=== PATIENT | male | born 1955 | race Asian ===

== ENCOUNTER → 2016-07-16 | Outpatient (CLI) | payer BC ==
[~2016-07-16] MED LIST: ATEN25TA PO; BUSCOPAN PO; CPR500 PO; CYAN100T6 PO; IBUP-103 PO; LEVO-217 PO; LRT5 PO; METF1000 PO; MULTTAB58 PO; PHEN-674 PO
[2016-07-16 09:56] LABS: ESTIMATED AVERAGE GLUCOSE 143 mg/dl; HA1C FLAG Normal (Normal)
[2016-07-16 10:00] LABS: ALT/SGPT 42 U/L (12-78); AST/SGOT 36 U/L (15-37); BLOOD UREA NITROGEN 18 mg/dl (7-18); BUN/CREATININE RATIO 14.9 (10-20); CALCIUM 9.1 mg/dl (8.5-10.1); CARBON DIOXIDE 24 mmol/L (21-32); CHLORIDE 111 mmol/L (98-107); GLUCOSE 97 mg/dl (70-99); HDL CHOLESTEROL 33 mg/dl; POTASSIUM 4.4 mmol/L (3.5-5.1); SODIUM 141 mmol/L (136-145)
[2016-07-16 10:12] LABS: ALB/GLOB RATIO 1.5 (0.9-2); ALKALINE PHOSPHATASE 60 U/L (45-117); CHOLESTEROL 86 mg/dl (0-200); CHOLESTEROL/HDL RATIO 2.6; LDL CHOLESTEROL CALCULATED 25 mg/dl; TRIGLYCERIDES 138 mg/dl (0-150); VERY LOW DENSITY LIPOPROT CALC 28 mg/dl
== END | disposition home or self-care (01) ==
LOC: C.LAB1850 07:55
PROVIDERS: ATTEND Family Medicine
DX: E11.9 Type 2 diabetes mellitus without complications (principal)

== ENCOUNTER → 2016-12-07 | Outpatient (CLI) | payer BC ==
[2016-12-07 10:58] LABS: BLOOD UREA NITROGEN 20 mg/dl (7-18); BUN/CREATININE RATIO 16.3 (10-20); CALCIUM 9.7 mg/dl (8.5-10.1); CARBON DIOXIDE 22 mmol/L (21-32); CHLORIDE 109 mmol/L (98-107); GLUCOSE 83 mg/dl (70-99); POTASSIUM 4.1 mmol/L (3.5-5.1); SODIUM 140 mmol/L (136-145)
== END | disposition home or self-care (01) ==
LOC: C.LAB1850 09:34
PROVIDERS: ATTEND Nurse Practitioner Adult Health
DX: I10 Essential (primary) hypertension (principal); E11.9 Type 2 diabetes mellitus without complications

== ENCOUNTER → 2017-03-18 | Outpatient (CLI) | payer OTHER ==
--- NOTE | 2017-03-18 08:30 | DIAGNOSTIC IMAGING REPORT ---
SOFT TISS HEAD/NECK-THYROID HISTORY: Thyroid nodule E04.1 Solitary thyroid [id number] COMPARISON: None. FINDINGS: Right lobe: Maximum dimension 4.2 cm. Heterogeneous internal architecture. Several hypoechoic nodules none of which exceed 6 mm. Left lobe: Maximum dimension 2.4 cm. Several small hypoechoic and cystic nodules the largest of which measures 6 mm. Isthmus: No nodules. IMPRESSION: Multicystic multinodular thyroid. No evidence for a dominant nodule with all nodules less than 6 mm. Normal vascularity. 6-12 month follow-up is suggested. The above report was generated using voice recognition software. It may contain grammatical, syntax or spelling errors. Electronically signed by: Edwin Easton M.D. 03/18/2017 8:29 AM Dictated Date/Time: 03/18/2017 8:15 AM
== END | disposition home or self-care (01) ==
LOC: C.ULTR 07:36
PROVIDERS: ATTEND Internal Medicine Endocrinology, Diabetes & Metabolism
DX: E04.1 Nontoxic single thyroid nodule (principal)

== ENCOUNTER → 2017-05-03 | Outpatient (CLI) | payer OTHER ==
[2017-05-03 12:15] LABS: MEAN CORPUSCULAR HGB CONC 33.2 g/dl (32-36)
[2017-05-03 12:29] LABS: HEMOGLOBIN A1C 7.1 % (4.5-5.6)
[2017-05-03 12:46] LABS: HEMATOCRIT 34.3 % (42-52); HEMOGLOBIN 11.4 g/dL (14.0-18.0); MEAN CELL VOLUME 65.2 fL (80-100); MEAN CORPUSCULAR HEMOGLOBIN 21.7 pg (25-34); RED CELL DISTRIBUTION WIDTH CV 15.6 % (11.5-14.5); RED CELL DISTRIBUTION WIDTH SD 36.1 fL (36.4-46.3)
[2017-05-03 13:25] LABS: BASO % 0.2 %; BASO ABS # 0.01 K/uL (0-0.2); EOS % 4.7 %; EOS ABS # 0.22 K/uL (0-0.5); IG# 0.02 K/uL (0.00-0.02); LYMPH % 22.6 %; LYMPH ABS # 1.06 K/uL (1.2-3.4); MONO % 6.2 %; MONO ABS # 0.29 K/uL (0.11-0.59); NEUT % 65.9 %; PLATELET COUNT 113 K/uL (130-400)
== END | disposition home or self-care (01) ==
LOC: C.LAB1850 09:58
PROVIDERS: ATTEND Nurse Practitioner Adult Health
DX: D64.9 Anemia, unspecified (principal); E11.9 Type 2 diabetes mellitus without complications; E03.9 Hypothyroidism, unspecified; R80.9 Proteinuria, unspecified

== ENCOUNTER 2023-05-19 17:12 | Inpatient (IN) ==
[2023-05-19] MEDS ORDERED: Patient's HEIGHT &/or WEIGHT Needed SCH (17:16)
--- NOTE | 2023-05-19 17:17 | ED Triage Note ---
Date of Service May 19, 2023 Provider in Triage Author: Francine Do History of Present Illness This patient was briefly evaluated while in triage. An abbreviated physical exam was performed. This patient is a 67-year-old Male who presents to the ED for evaluation of right flank pain. Pt. was here yesterday and diagnosed with infected right ureteral stone. Pt. was started on antibiotics. States he passed the stone, but is now experiencing a sharp/shooting pain in the right pelvis. Pt. taking analgesics prescribed. Did have a fever this morning. States he took 1 dose of Cipro this morning. No pain/burning with urination. Does have appointment with Urology on Wednesday. Physical Exam VITALS: Vitals are noted on the nurse's note and reviewed by myself. GENERAL: This is a 67 year old 67, in no acute distress, nondiaphoretic, well- developed well-nourished. SKIN: No obvious rashes, edema, erythema HEAD: Normocephalic atraumatic. EYES: Conjunctivae without injection, sclerae without icterus. NECK: No JVD. LUNGS: No retractions or accessory muscle use. MUSCULOSKELETAL: Normal gait. NEURO: Patient was alert and oriented to person place and time. No focal neurological deficits. Initial orders for labs and / or imaging were placed and patient was placed in the waiting area until a bed is available. Please see further documentation for the full ED course.
[2023-05-19] MEDS: SODIUM CHLORIDE 0.9% 1,000 ML IV ONE ×2 (17:26→19:02)
[2023-05-19 18:03] LABS: Alanine Aminotransferase 23 U/L (7-52); Albumin Globulin Ratio 1.7 (0.9-2); Albumin Level 4.8 gm/dl (3.4-5.0); Alkaline Phosphatase 57 U/L (34-104); Anion Gap 12 (3-11); Aspartate Aminotransferase 30 U/L (13-39); BUN Creatinine Ratio 18.9 (10-20); Blood Urea Nitrogen 33 mg/dl (6-23); Calcium 9.9 mg/dl (8.6-10.3); Carbon Dioxide 19 mmol/L (21-32); Chloride 98 mmol/L (98-107); Est GFR (African American) 45.7 ml/min; Est GFR (Non-African American) 39.4 ml/min; Globulin 2.9 gm/dl (2.5-4.0); Glucose 296 mg/dl (70-99(Fasting)); Lipase 18 U/L (11-82); Potassium 4.6 mmol/L (3.5-5.1); Sodium 129 mmol/L (136-145); Total Protein 7.7 gm/dl (6.0-8.3)
[2023-05-19 18:13] LABS: Hematocrit (blood only) 36.9 % (42.0-52.0); Hemoglobin 12.2 g/dl (14.0-18.0); Mean Corpuscular Hemoglobin 22.7 pg (25.0-34.0); Mean Corpuscular Hgb Conc 33.1 g/dL (32.0-36.0); Mean Corpuscular Volume 68.7 fL (80.0-100.0); Platelet Count 75 K/uL (130-400); RDW Coefficient of Variation 15.7 % (11.5-14.5); RDW Standard Deviation 37.5 fL (36.4-46.3); Red Blood Count 5.37 M/uL (4.70-6.10); White Blood Count 9.55 K/ul (4.8-10.8)
[2023-05-19 18:14] LABS: Basophils # (auto) 0.01 K/uL (0.00-0.20); Basophils % (auto) 0.1 %; Immature Granulocytes # (auto) 0.03 K/uL (0.01-0.20); Immature Granulocytes % (auto) 0.3 %; Lymphocytes # (auto) 0.23 K/uL (1.20-3.40); Lymphocytes % (auto) 2.4 %; Microcytosis Present; Monocytes % (auto) 5.2 %; Neutrophils # (auto) 8.78 K/uL (1.40-6.50); Ovalocytes 1+; Polychromasia 1+; Tear Drop Cells 2+
[2023-05-19] MEDS: CEFEPIME 2,000 MG/20 ML VIAL IV STA (19:02)
[2023-05-19 19:37] LABS: Appearance Urine Clear (Clear); Bilirubin Urine Negative (Negative); Blood Urine Negative (Negative); Color Urine Yellow; Glucose Urine UA 3+ (Negative); Ketones Urine 1+ (Negative); Leukocyte Esterase Urine Negative (Negative); Nitrite Urine Negative (Negative); Protein Urine Negative (Negative); Specific Gravity Urine 1.027 (1.000-1.030); Urobilinogen Urine Negative (Negative)
--- NOTE | 2023-05-19 19:59 | XRay Report ---
XR KUB/Abdomen 1 view CLINICAL HISTORY: RLQ pain, recently passed stone TECHNIQUE: 1 view of the abdomen was obtained. Comparison: Comparison is made to abdomen radiographs and CT abdomen pelvis 05/18/2023 FINDINGS: Right renal stones are seen. Right ventricular system remains. The osseous structures are grossly unr emarkable. The bowel gas pattern is nonobstructive. A moderate amount of stool is noted within the la rge bowel. IMPRESSION: Redemonstration of right mid ureter stone. Nonobstructive stones in the right kidney again noted. ACT 112: Negative or not required by law. Electronically signed by: Charly Silverman M.D. 05/19/2023 7:58 PM
--- NOTE | 2023-05-19 20:48 | Urology Consultation ---
Date of Consultation May 19, 2023 Assessment & Plan (1) Calculus of proximal right ureter: I discussed with the treating clinician in the emergency department and the patient is being admitted on the hospitalist service. From a urologic perspective we recommend the following: Provide analgesics Provide antiemetics Follow serial labs Provide IV fluid for hydration The patient does take Flomax as an outpatient and this medication should continue Patient was taking Cipro as an outpatient but his antibiotics been escalated to cefepime intravenously which should continue. These antibiotics be tailored based on clinical response as well as pending culture data Implement n.p.o. status At the present time the patient is normotensive with only slight tachycardia (heart rate is in the 90s). The patient has been afebrile since arrival to the emergency department. He also does not have leukocytosis. He does have a slight elevation of his lactic acid level and this should be followed serially. As the patient does not appear toxic at this time and since he has had solid food approximate 1/2-hour ago we will not take the patient to the operating room urgently. If the patient does develop fevers or have signs or symptoms of worsening sepsis an emergent procedure may need to be required. Otherwise, we will plan on cystoscopy with possible right ureteral stent placement on 05/20/2023 Additional recommendations be forthcoming based on his clinical course as unfolds History of Present Illness Reason for Consultation: Nephrolithiasis History of Present Illness This is a 67-year-old male who presented to the emergency department secondary to a kidney stone. The patient was in the emergency department on 05/18/2023. During this visit the patient underwent a CT scan of the abdomen pelvis. This study identified the patient had a 3 mm obstructing kidney stone in the right proximal ureter causing hydronephrosis. Labs at this time include a CBC were white blood cell count was normal. His hemoglobin and hematocrit were 12.6 and 38.8. Platelet count was 99,000. Chemistry profile showed sodium was 135 with a normal potassium. His BUN was elevated at 26 and his creatinine was 1.2. Urinalysis at that time showed cloudy urine which was positive for nitrites. The patient also had 2+ leukocyte Estrace and pyuria with greater than 30 white blood cells per high-power field. There is 3+ bacteria on this study. The patient was offered admission to the hospital but he noted that he was feeling well and requested he be discharged home on oral antibiotics. The patient was discharged on Cipro which the patient says he has taken since discharge. The patient had a follow-up appoint with his PCP this morning where he was noted to be febrile with a temperature of 103. It was recommended that he report to the emergency department. The patient initially declined as he was feeling better after taking his morning antibiotic but he subsequently developed further fevers and ultimately presented to the emergency department. Today in the emergency department the patient did have a KUB that showed redemonstration of a right mid ureteral stone. Labs today included a CBC were white blood cell count is 9.5. Hemoglobin and hematocrit were 12.2 and 36.9. Platelet count is 75,000. Chemistry profile shows sodium is 129 with a normal potassium. His BUN and creatinine were 33 and 1.7. Lactic acid level was elevated at 3.7. Patient did have a urinalysis today that showed no evidence of infection at this time. I did question the patient on his symptoms and prior to his initial presentation to the emergency department last evening he was having 2 days of right flank pain radiating to the front of his abdomen. He had nausea without vomiting. He denies any dysuria but did report urinary frequency. He denies any hematuria and denies any incomplete bladder emptying. The patient does report that he has a history of kidney stones most recently in 2011 where he underwent a cystoscopy with stent placement. His most recent oral intake was approximately 8:00 PM on 05/19/2023 when he ate to [email or web address]. He is currently resting comfortably in bed he is in no distress. Allergies Allergy/AdvReac Type Severity Reaction Status Date / Time Sulfa (Sulfonamide Allergy Intermediate Hives Verified 05/19/23 20:32 Antibiotics) [facility] Allergy Mild Skin Verified 05/19/23 20:32 reaction pneumococcal vaccine Allergy fatigue, Verified 05/19/23 20:32 [From Prevelaine 13 (PF)] weakness Home Medications Medication Instructions Recorded Confirmed Type cholecalciferol (vitamin D3) 125 5,000 units PO QPM 03/30/19 05/19/23 History mcg (5,000 unit) capsule multivitamin 1 tab PO QAM 06/15/19 05/19/23 History metformin 500 mg tablet,extended 1,000 mg (2 x 500 mg) PO BID 90 12/04/22 05/19/23 Rx release 24 hr days #360 tabs FreeStyle Irma 14 Day Sensor #6 ea 03/10/23 05/19/23 Rx (flash glucose sensor) atenolol 25 mg tablet 25 mg PO QAM 03/23/23 05/19/23 History empagliflozin 10 mg tablet 10 mg PO QPM 03/23/23 05/19/23 History glipizide 5 mg tablet 2.5 mg PO QAM 03/23/23 05/19/23 History levothyroxine 75 mcg tablet 75 mcg PO QAM 03/23/23 05/19/23 History lisinopril 20 mg tablet 20 mg PO QPM 03/23/23 05/19/23 History ciprofloxacin HCl 500 mg tablet 500 mg PO BID 10 days #20 tabs 05/18/23 05/19/23 Rx (Cipro) ondansetron 4 mg disintegrating 4 mg PO Q6H PRN nausea and 05/18/23 05/19/23 Rx tablet vomiting #12 tabs oxycodone 5 mg tablet 5 mg PO Q6H PRN pain #10 tabs 05/18/23 05/19/23 Rx tamsulosin 0.4 mg capsule (Flomax) 0.4 mg PO DAILY #14 caps 05/18/23 05/19/23 Rx atorvastatin 10 mg tablet 5 mg PO QAM 05/19/23 05/19/23 History Patient History Medical History Right ureteral stone Diabetes mellitus, type 2 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 w/beta thalassemia [place] syndrome Ptosis, right eyelid Hypothyroidism Pancytopenia "low grade" Cardiac murmur mild Hypertension Surgical History History of esophagogastroduodenoscopy (EGD) Hx of blepharoplasty rt eye, age 6 for congential ptosis S/P hemorrhoidectomy 2022 History of colonoscopy (2019) History of herniorrhaphy rt inguinal History of tooth extraction Family History Father Family history of diabetes mellitus Prostate cancer Hypertension Mother Family history of diabetes mellitus Heart disease Denies family history of Colon cancer Ovarian cancer Myocardial infarction Breast cancer Social History Smoking Status: Never smoker Tobacco Type: Cigarettes Age Quit Using Tobacco: 35; Second Hand Exposure: No; Do You Dip or Chew Tobacco: No; Hx Alcohol Use: Yes Alcohol type: beer Alcohol Intake Frequency: 2-3 x/Week Hx Substance Use: No Preferred Language: Lao Communication Ability: Effective Visual Impairment: No Limitations Hearing Ability: Normal Car Dumper Required: No Beliefs That Will Affect Care: None marital status: Current Living Situation: Spouse current occupational status: employed 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 How many Children do You have: 2 Feels Safe at Home: Yes Childhood Exposure to Second-Hand Smoke: No Diet: diabetic caffeine: Yes during the past year weight has: remained stable Dental Care, Regularly: Yes Physical Activity Frequency: Daily Seatbelt Use: always Sunscreen Use: No Assistive Devices: None Review of Systems Constitutional: + fever; no chills Ear, Nose, Mouth, Throat: no hearing loss Respiratory: no cough and no dyspnea Cardiovascular: no chest pain Gastrointestinal: + abdominal pain (Radiating from right f lank); no vomiting Genitourinary: + as per Subjective / HPI Musculoskeletal: + back pain (Right flank) Integumentary: no rash Neurologic: no localized weakness Physical Exam Constitutional: WD/WN, vitals as above Eyes: no conjunctival abnormality ENMT: Ears: no hearing impairment and no external ear abnormality Mouth: no oropharynx abnormality Neck: trachea midline Respiratory: normal respiratory effort; no respiratory distress and no labored breathing Cardiovascular: Rate/Rhythm: regular rate and regular rhythm Gastrointestinal (Abdomen): Abdomen is soft and nondistended. It is nontender to palpation. There is no rebound tenderness or guarding. Musculoskeletal: No calf tenderness Skin: no rashes Neurologic: moves all extremities Psychiatric: A+Ox3, euthymic affect Genitourinary: Slight CVA tenderness with percussion on the right side Results & Data Vital Signs (Past 12 Hours) Vital Signs Temp Pulse Resp BP Pulse Ox O2 Del Method 05/19/23 17:16 36.8 C 94 H 20 153/86 H 97 Room Air PG Care Time/CCT Total # of Minutes Spent Total Time Spent with Patient: Total time spent is greater than 50% in coordination of care (as documented) at patient's floor/unit and/or counseling patient: Coding Level of Care Code 66843 INT INP/OBS CARE MIN Diagnoses Calculus of proximal right ureter N20.1
--- NOTE | 2023-05-19 20:57 | Ultrasound Report ---
Exam(s): US RENAL EXAM: US Retroperitoneal Limited, Renal CLINICAL HISTORY: Reason for exam: right pelvic pain, recent ureteral stone. TECHNIQUE: Real-time limited ultrasound of the retroperitoneum with image documentation. COMPARISON: No relevant prior studies available. FINDINGS: Right kidney: The right kidney measures 11.2 x 5.5 x 4.9 cm. The right renal pelvis measures 1.2 cm. No hydronephrosis. No stones. Left kidney: The left kidney measures 11.2 x 5.6 x 4.3 cm. No stones. No hydronephrosis. Bladder: The urinary bladder is partially distended and unremarkable. Soft tissues: The prostate gland measures 4 x 3.3 x 3.7 cm with heterogenous echotexture. Other findings: The spleen is enlarged measuring 15.1 cm. IMPRESSION: Slight prominence of the right renal pelvis without overt right hydronephrosis. No shadowing stones identified. Electronically signed by: Tino Santacruz MD 05/19/23 20:56 PM
[2023-05-19] MEDS ORDERED: GLUCOSE 10 TAB/TUBE PO PRN (21:03)
[2023-05-19] MEDS ORDERED: DEXTROSE 50% 50 ML SYRINGE IV PRN (21:03)
[2023-05-19] MEDS ORDERED: ACETAMINOPHEN 325 MG TAB PO PRN (21:03)
[2023-05-19] MEDS ORDERED: GLUCAGON FOR INJ 1 MG VIAL SQ PRN (21:03)
[2023-05-19] MEDS ORDERED: GLUCOSE 40% GEL 15 GM TUBE PO PRN (21:03)
[2023-05-19] MEDS ORDERED: CARBOHYDRATES FOR HYPOGLYCEMIA PO PRN (21:03)
[2023-05-19] MEDS ORDERED: VANCOMYCIN CONSULT ACTIVE PRN (21:12)
[2023-05-19] MEDS: ONDANSETRON INJ 2 MG/ML 2 ML VIAL IV PRN (21:15)
[2023-05-19] MEDS: HYDROmorphone INJ 0.5 MG/0.5 ML SYR IV PRN (21:15)
--- NOTE | 2023-05-19 21:29 | History & Physical Report ---
Date of Service May 19, 2023 Assessment & Plan (1) Urolithiasis: Plan: Assessment: 1. Urolithiasis with a 3 mm stone in the proximal ureter by CAT scan yesterday. With what appears to be evolving early hydronephrosis on ultrasound today. Patient failed outpatient oral antibiotic therapy. He represents today. He is getting 2-1/2 L of saline from the ER. Will order saline at 100 cc an hour. IV cefepime. IV vancomycin. Urological consultation. Again if patient spikes a fever urology would like to be notified per the ER provider. N.p.o. after midnight. Blood cultures were obtained. Urine cultures pending. 2. Early clinical sepsis with lactic acidemia and relative tachycardia. Blood cultures obtained. IV cefepime IV vancomycin. Presumed to be urinary source. 3. Acute kidney injury due to obstructive uropathy and dehydration. Hydrate aggressively and recheck. 4. Lactic acidemia hydrate and recheck. 5. Diabetes mellitus sliding scales been ordered as well as twice daily Lantus. Monitor carefully he is relatively hyperglycemic this evening. 6. History of pancytopenia and beta thalassemia. Following with outpatient physician. Due to the concern of possible cirrhosis on the CT scan close outpatient follow-up needs to be taken place with liver biopsy considered. 7. Question of cirrhosis by CAT scan. Again short-term outpatient follow-up with primary care is recommended for consideration of liver biopsy if not already completed I do not see where this has been addressed in the medical record this CAT scan was result was just from yesterday. 8. Hypothyroidism continue same home medications. 9. Dyslipidemia continue same medications. 10. Essential hypertension continue same home meds. Plan: As discussed above. Please refer to orders for further planning. History of Present Illness Chief Complaint: Right flank pain abdominal pain nausea. Right urolithiasis. Primary Care Provider: Bryant Muro, DO This is a pleasant 67-year-old male who came to the ER yesterday with the above complaints. He had a CAT scan that showed a proximal right ureter stone 3 mm. Was recommended to be admitted for urological evaluation. The patient declined and was discharged home on oral antibiotics. Patient followed up with his primary care physician today the patient was feeling worse with increased pain. He was directed back to the ER. At this point in the ER laboratory studies show acute kidney injury with a creatinine up to 1.75 with a lactic acidemia with a lactic acid of 3.7 renal ultrasound was performed in the ER today shows right- sided stone with what appears to be probable evolving early right-sided hydronephrosis. Blood cultures were obtained the patient received IV cefepime. Urology was consulted Dr. Whelan who plans on taking the patient to the OR tomorrow unless the patient spikes a fever overnight to become septic at which point he would like to be notified this was per the ER doctor's conversation with urology relayed to me. Other laboratory studies show mild anemia and thrombocytopenia which appears chronic the patient has a history of pancytopenia unknown etiology however the CAT scan yesterday does show a cirrhotic appearance of the liver. He will need to follow-up with us as an outpatient. Allergies Allergy/AdvReac Type Severity Reaction Status Date / Time Sulfa (Sulfonamide Allergy Intermediate Hives Verified 05/19/23 20:32 Antibiotics) [facility] Allergy Mild Skin Verified 05/19/23 20:32 reaction pneumococcal vaccine Allergy fatigue, Verified 05/19/23 20:32 [From Prevnar 13 (PF)] weakness Home Medications Medication Instructions Recorded Confirmed Type cholecalciferol (vitamin D3) 125 5,000 units PO QPM 03/30/19 05/19/23 History mcg (5,000 unit) capsule multivitamin 1 tab PO QAM 06/15/19 05/19/23 History metformin 500 mg tablet,extended 1,000 mg (2 x 500 mg) PO BID 90 12/04/22 05/19/23 Rx release 24 hr days #360 tabs FreeStyle Irma 14 Day Sensor #6 ea 03/10/23 05/19/23 Rx (flash glucose sensor) atenolol 25 mg tablet 25 mg PO QAM 03/23/23 05/19/23 History empagliflozin 10 mg tablet 10 mg PO QPM 03/23/23 05/19/23 History glipizide 5 mg tablet 2.5 mg PO QAM 03/23/23 05/19/23 History levothyroxine 75 mcg tablet 75 mcg PO QAM 03/23/23 05/19/23 History lisinopril 20 mg tablet 20 mg PO QPM 03/23/23 05/19/23 History ciprofloxacin HCl 500 mg tablet 500 mg PO BID 10 days #20 tabs 05/18/23 05/19/23 Rx (Cipro) ondansetron 4 mg disintegrating 4 mg PO Q6H PRN nausea and 05/18/23 05/19/23 Rx tablet vomiting #12 tabs oxycodone 5 mg tablet 5 mg PO Q6H PRN pain #10 tabs 05/18/23 05/19/23 Rx tamsulosin 0.4 mg capsule (Flomax) 0.4 mg PO DAILY #14 caps 05/18/23 05/19/23 Rx atorvastatin 10 mg tablet 5 mg PO QAM 05/19/23 05/19/23 History Past Med/Surg History Medical History Right ureteral stone Diabetes mellitus, type 2 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 w/beta thalassemia [place] syndrome Ptosis, right eyelid Hypothyroidism Pancytopenia "low grade" Cardiac murmur mild Hypertension Surgical History History of esophagogastroduodenoscopy (EGD) Hx of blepharoplasty rt eye, age 6 for congential ptosis S/P hemorrhoidectomy 2022 History of colonoscopy (2019) History of herniorrhaphy rt inguinal History of tooth extraction Family History Father Family history of diabetes mellitus Prostate cancer Hypertension Mother Family history of diabetes mellitus Heart disease Denies family history of Colon cancer Ovarian cancer Myocardial infarction Breast cancer Social History Smoking Status: Never smoker Tobacco Type: Cigarettes Age Quit Using Tobacco: 35; Second Hand Exposure: No; Do You Dip or Chew Tobacco: No; Hx Alcohol Use: Yes Alcohol type: beer Alcohol Intake Frequency: 2-3 x/Week Hx Substance Use: No Preferred Language: Italian Communication Ability: Effective Visual Impairment: No Limitations Hearing Ability: Normal Outpatient Services Director Required: No Beliefs That Will Affect Care: None marital status: Current Living Situation: Spouse current occupational status: employed 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 Physical Exam Physical Exam: In General: In general this is a pleasant 67-year-old male who is alert and oriented x 3 at time my examination. 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 He does admit the pain. HEENT: Normocephalic atraumatic pupils are equal round and reactive to light bilaterally. No scleral icterus no conjunctival injection external auditory canals are patent septum is in the midline nose is without discharge oral mucosa is pink and moist without lesion. NECK: Supple no rigidity no lymphadenopathy no thyromegaly no carotid bruits no JVD no masses. HEART: Regular rate and rhythm I do not appreciate any ectopy or rub. No murmur. LUNGS: Clear to auscultation bilaterally and anteriorly with no evidence of adventitious sounds/wheezes rales or rhonchi. ABDOMEN: Soft nontender, no rebound, no peritoneal signs, positive bowel sounds, no appreciable organomegaly. He does have significant right-sided flank pain. EXTREMITIES: Intact, no peripheral cyanosis, clubbing or edema. Strength is 5 out of 5 in extremities x4, no pathological reflexes. NEUROLOGICAL: Cranial nerves II through XII are grossly intact with no focal deficit elicited upon examination. No tremor. Results & Data Results & Data Vital Signs (Past 12 Hours) Vital Signs Temp Pulse Pulse Resp BP BP Pulse Ox 05/19/23 20:45 98 05/19/23 20:45 92 H 23 132/82 97 05/19/23 17:16 36.8 C 94 H 20 153/86 H 97 O2 Del Method 05/19/23 20:45 Room Air 05/19/23 20:45 Room Air 05/19/23 17:16 Room Air Code Status & VTE Plan Code Status Full code. I did personally speak with the patient today. VTE Prophylaxis Plan VTE Prophylaxis will be ordered: Yes PG Care Time/CCT Total # of Minutes Spent Total Time Spent with Patient: Total time spent is greater than 50% in coordination of care (as documented) at patient's floor/unit and/or counseling patient: Coding Level of Care Code 05449 INT INP/OBS CARE MIN Diagnoses Urolithiasis N20.9
[2023-05-19] MEDS: VANCOMYCIN HCL 1,500 MG in SODIUM CHLORIDE 0.9% 500 ML IV ONE (21:39)
[2023-05-19] MEDS: LANTUS PER UNIT CHARGE SQ SCH (21:53)
[2023-05-19] MEDS: oxyCODONE HCL IR 5 MG TAB (IMMEDIATE RELEASE) PO PRN (22:53)
[2023-05-19] MEDS: SODIUM CHLORIDE 0.9% 500 ML IV ONE (22:55)
[2023-05-19] MEDS: ONDANSETRON INJ 2 MG/ML 2 ML VIAL IV STA (23:19)
[2023-05-19] MEDS: SODIUM CHLORIDE 0.9% 1,000 ML IV SCH (23:30)
[2023-05-19] MEDS: INSULIN ASPART PER UNIT CHARGE SC SCH (23:44)
[2023-05-19] MEDS: CHOLECALCIFEROL 125 MCG (5,000 UNITS) TAB PO SCH (23:52)
--- NOTE | 2023-05-20 00:15 | Emergency Department Note ---
History of Present Illness General Chief Complaint: Abdominal Pain Stated Complaint: R SIDE PAIN , HERE YESTERDAY, KIDNEY STONES Time Seen by Provider: 05/19/23 18:52 History of Present Illness Provider Complaint: flank pain (R) Onset (ago): 4 day(s) Pain Consistency: intermittent Location: R flank Radiation: RLQ Severity: mild Maximum Pain Intensity: 3 Current Pain Intensity: 3 Quality: + stabbing and + sharp Relieved By: + nothing Exacerbated By: + nothing Context: + recent antibiotic use (Started on Cipro yesterday for UTI) and + history of similar episodes (Diagnosed with kidney stones yesterday); no foreign travel, no possible food poisoning, no sick contacts, no recent surgery/procedure or no recent injury Associated Symptoms: + fever; no nausea, no vomiting, no chills, no dysuria, no hematemesis, no melena, no hematuria and no breathing difficulty Home Medications Medication Instructions Recorded Confirmed Type cholecalciferol (vitamin D3) 125 5,000 units PO QPM 03/30/19 05/19/23 History mcg (5,000 unit) capsule multivitamin 1 tab PO QAM 06/15/19 05/19/23 History metformin 500 mg tablet,extended 1,000 mg (2 x 500 mg) PO BID 90 12/04/22 05/19/23 Rx release 24 hr days #360 tabs FreeStyle Irma 14 Day Sensor #6 ea 03/10/23 05/19/23 Rx (flash glucose sensor) atenolol 25 mg tablet 25 mg PO QAM 03/23/23 05/19/23 History empagliflozin 10 mg tablet 10 mg PO QPM 03/23/23 05/19/23 History glipizide 5 mg tablet 2.5 mg PO QAM 03/23/23 05/19/23 History levothyroxine 75 mcg tablet 75 mcg PO QAM 03/23/23 05/19/23 History lisinopril 20 mg tablet 20 mg PO QPM 03/23/23 05/19/23 History ciprofloxacin HCl 500 mg tablet 500 mg PO BID 10 days #20 tabs 05/18/23 05/19/23 Rx (Cipro) ondansetron 4 mg disintegrating 4 mg PO Q6H PRN nausea and 05/18/23 05/19/23 Rx tablet vomiting #12 tabs oxycodone 5 mg tablet 5 mg PO Q6H PRN pain #10 tabs 05/18/23 05/19/23 Rx tamsulosin 0.4 mg capsule (Flomax) 0.4 mg PO DAILY #14 caps 05/18/23 05/19/23 Rx atorvastatin 10 mg tablet 5 mg PO QAM 05/19/23 05/19/23 History Allergies Allergy/AdvReac Type Severity Reaction Status Date / Time Sulfa (Sulfonamide Allergy Intermediate Hives Verified 05/19/23 20:32 Antibiotics) dulaglutide [From Trulicity] Allergy Mild Skin Verified 05/19/23 20:32 reaction pneumococcal vaccine Allergy fatigue, Verified 05/19/23 20:32 [From Prevnar 13 (PF)] weakness Past Med/Surg History Medical History Right ureteral stone Diabetes mellitus, type 2 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 w/beta thalassemia [place] syndrome Ptosis, right eyelid Hypothyroidism Pancytopenia "low grade" Cardiac murmur mild Hypertension Surgical History History of esophagogastroduodenoscopy (EGD) Hx of blepharoplasty rt eye, age 6 for congential ptosis S/P hemorrhoidectomy 2022 History of colonoscopy (2019) History of herniorrhaphy rt inguinal History of tooth extraction Family History Father Family history of diabetes mellitus Prostate cancer Hypertension Mother Family history of diabetes mellitus Heart disease Denies family history of Colon cancer Ovarian cancer Myocardial infarction Breast cancer Social History Smoking Status: Former smoker Tobacco Type: Cigarettes Age Quit Using Tobacco: 35; Second Hand Exposure: No; Do You Dip or Chew Tobacco: No; Hx Alcohol Use: No Hx Substance Use: No Preferred Language: Slovenian Communication Ability: Effective Visual Impairment: No Limitations Hearing Ability: Normal Senior Hardware Engineer Required: No Beliefs That Will Affect Care: None marital status: Current Living Situation: Spouse current occupational status: employed 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 How many Children do You have: 2 Feels Safe at Home: Yes Childhood Exposure to Second-Hand Smoke: No Diet: diabetic caffeine: Yes during the past year weight has: remained stable Dental Care, Regularly: Yes Physical Activity Frequency: Daily Seatbelt Use: always Sunscreen Use: No Assistive Devices: Glasses Physical Exam 2 Vital Signs: Vital Signs - 24 hr 05/19/23 17:16 05/19/23 20:45 05/19/23 20:45 Temperature 36.8 C Temperature Source Temporal Artery Sc an Pulse Rate 94 H Pulse Rate [Apical ] 92 H Respiratory Rate 20 23 Respiratory Effort / Characteristics Non-Labored Sponta neous Respiratory Depth Normal Respiratory Patter n Regular Blood Pressure 153/86 H Blood Pressure [Ri ght Arm] 132/82 Blood Pressure Sandra n 108 Blood Pressure Sandra n [Right Arm] 98 Pulse Oximetry 97 97 98 Oxygen Delivery Me thod Room Air Room Air Room Air Sepsis Recent Feve r Within 48 Hours Yes Sepsis New/Unexpla ined Change in Men leanne Status No Sepsis Action Take n by Nursing No Action Required Physical Exam: Physical Exam GENERAL: She is oriented to person, place, and time. She appears well-developed and well-nourished. She does not appear distressed. HENT: Exam performed. -Head: Normocephalic and atraumatic. -Right Ear: External ear normal. No mastoid erythema -Left Ear: External ear normal. No mastoid erythema -Mouth/Throat: The oropharynx is clear and moist. No trismus in the jaw. No dental abscesses or uvula swelling. No oropharyngeal exudate or tonsillar abscesses. EYES: Conjunctivae and EOM are normal.Right eye exhibits no discharge. Left eye exhibits no discharge. No scleral icterus. NECK: Normal range of motion. Neck supple. No JVD present. No tracheal deviation and normal range of motion present. CV: Normal rate, regular rhythm, normal heart sounds and intact distal pulses. There is no peripheral edema. Palpable radial pulses bue. PULM/CHEST: Effort normal and breath sounds normal. No respiratory distress. No stridor. She has no wheezes. She has no rales. -Chest Wall: She exhibits no tenderness. ABD: The abdomen is soft. Bowel sounds are normal. She has no distension. No mass is present. There is no tenderness. There is no rebound, no guarding, no Greene's sign and no tenderness at McBurney's point. Rovsig negative MUSC/SKEL: Normal range of motion. There is no peripheral edema, tenderness or deformity. NEURO: Motor and sensation grossly intact. SKIN: Skin is warm and dry. She is not diaphoretic. PSYCH: She has a normal mood and affect. Behavior is normal. Judgment and thought content normal. Course Course 1851: The patient was evaluated in room B6. A complete history and physical exam was performed Cardiac monitoring: An order was placed for continuous cardiac monitoring. The monitor shows a rate of 90 with sinus rhythm interpreted by me 1940: Vital signs stable. Labs show lactic acid of 3.7. Creatinine 1.75 up from 1.29 yesterday. Sodium of 129. 30 cc/kg normal saline bolus administered in the emergency department as well as broad-spectrum antibiotics cefepime. Discussed with Dr. Whelan on-call neurology and he states that keep the patient n.p.o. if the patient develops a fever overnight to call him in and they could emergently remove the stone otherwise he will plan on doing it in the morning. Dr. Whelan recommends admitting the patient to medicine. Administered Medications Hydromorphone HCl (Hydromorphone Inj 0.5 Mg/0.5 Ml Syr) 0.5 mg IV Q3H PRN PRN Reason: Pain Scale 4,5,6 Stop: 06/02/23 21:01 Last Admin: 05/19/23 21:15 Dose: 0.5 mg Documented By: LUIS Sodium Chloride (Nss) 1,000 mls @ 100 mls/hr IV .Q10H [facility] Stop: 06/18/23 21:14 Last Admin: 05/19/23 23:30 Dose: 100 mls/hr Documented By: NALLELY Insulin Aspart (Insulin Aspart Per Unit Charge) 0 units SC Q6 LAZARO Stop: 06/19/23 00:00 Last Admin: 05/19/23 23:44 Dose: 1 units Documented By: NALLELY Co-signed By: CARIDAD Insulin Glargine (Lantus Per Unit Charge) 7 units SQ BID [facility] Stop: 06/18/23 21:14 Last Admin: 05/19/23 21:53 Dose: 7 units Documented By: LUIS Co-signed By: ALEXANDER Ondansetron HCl (Ondansetron Inj 2 Mg/Ml 2 Ml Vial) 4 mg IV Q6H PRN PRN Reason: Nausea Stop: 06/18/23 21:01 Last Admin: 05/19/23 21:15 Dose: 4 mg Documented By: LUIS Oxycodone HCl (Oxycodone Hcl Ir 5 Mg Tab (Immediate Release)) 5 mg PO Q6H PRN PRN Reason: pain Stop: 06/02/23 22:31 Last Admin: 05/19/23 22:53 Dose: 5 mg Documented By: NALLELY Vitamin D (Cholecalciferol 125 Mcg (5,000 Units) Tab) 125 mcg PO QPM LAZARO Stop: 06/18/23 22:31 Last Admin: 05/19/23 23:52 Dose: Not Given Documented By: NALLELY Discontinued Medications Sodium Chloride (Nss) 1,000 mls @ 999 mls/hr IV .Q1H1M ONE Stop: 05/19/23 18:18 Last Infusion: 05/19/23 22:22 Dose: Infused Documented By: Admin: 05/19/23 17:26 Dose: 999 mls/hr Documented By: TUAN Sodium Chloride (Nss) 1,000 mls @ 999 mls/hr IV .Q1H1M ONE Stop: 05/19/23 18:45 Last Infusion: 05/19/23 21:04 Dose: Infused Documented By: Admin: 05/19/23 19:02 Dose: 999 mls/hr Documented By: LUIS Cefepime HCl (Maxipime) 2,000 mg in 20 mls @ 5 mls/min IV NOW STA; Protocol Stop: 05/19/23 18:20 Last Admin: 05/19/23 19:02 Dose: 5 mls/min Documented By: LUIS Sodium Chloride (Nss) 500 mls @ 999 mls/hr IV .Q31M ONE Stop: 05/19/23 21:19 Last Infusion: 05/19/23 23:26 Dose: Infused Documented By: Admin: 05/19/23 22:55 Dose: 999 mls/hr Documented By: NALLELY Vancomycin HCl 1,500 mg/ (Sodium Chloride) 530 mls @ 200 mls/hr IV NOW ONE Stop: 05/20/23 00:08 Last Admin: 05/19/23 21:39 Dose: 200 mls/hr Documented By: LUIS Ondansetron HCl (Ondansetron Inj 2 Mg/Ml 2 Ml Vial) 4 mg IV NOW STA Stop: 05/19/23 20:48 Last Admin: 05/19/23 23:19 Dose: Not Given Documented By: NALLELY Medical Decision Making Medical Records Attestation: I reviewed the patient's medical records. External medical records reviewed. Patient was seen in the emergency department last night and diagnosed with a kidney stone and UTI. Patient did have fevers overnight last night was recommended to come into the emergency department but declined. Patient had a CT of the abdomen pelvis done yesterday which showed a 3 mm obstructing calculus in the right proximal ureter and mild right hydroureteronephrosis. Laboratory Data Attestation: I reviewed the patient's lab results. 05/19/23 17:15 05/19/23 17:15 Lab Results 05/19/23 Range/Units 17:15 WBC 9.55 (4.8-10.8) K/ul RBC 5.37 (4.70-6.10) M/uL Hgb 12.2 L (14.0-18.0) g/dl Hct 36.9 L (42.0-52.0) % MCV 68.7 L (80.0-100.0) fL MCH 22.7 L (25.0-34.0) pg MCHC 33.1 (32.0-36.0) g/dL RDW Std Deviation 37.5 (36.4-46.3) fL RDW Coeff of Srinivas 15.7 H (11.5-14.5) % Plt Count 75 L (130-400) K/uL Immature Gran % (Auto) 0.3 % Neut % (Auto) 92.0 % Lymph % (Auto) 2.4 % Terry % (Auto) 5.2 % Eos % (Auto) 0.0 % Baso % (Auto) 0.1 % Neut # (Auto) 8.78 H (1.40-6.50) K/uL Lymph # (Auto) 0.23 L (1.20-3.40) K/uL Terry # (Auto) 0.50 (0.11-0.59) K/uL Eos # (Auto) 0.00 (0.00-0.50) K/uL Baso # (Auto) 0.01 (0.00-0.20) K/uL Immature Gran # (Auto) 0.03 (0.01-0.20) K/uL Polychromasia 1+ Microcytosis Present Tear Drop Cells 2+ Ovalocytes 1+ Sodium 129 L (136-145) mmol/L Potassium 4.6 (3.5-5.1) mmol/L Chloride 98 (98-107) mmol/L Carbon Dioxide 19 L (21-32) mmol/L Anion Gap 12 H (3-11) BUN 33 H (6-23) mg/dl Creatinine 1.75 H D (0.6-1.4) mg/dl Est Cr Clr Drug Dosing Not Reportable Est GFR ( Amer) 45.7 ml/min Est GFR (Non-Af Amer) 39.4 ml/min BUN/Creatinine Ratio 18.9 (10-20) Glucose 296 H (70-99(Fasting)) mg/dl Lactate 3.7 H* (0.4-2.0) mmol/L Calcium 9.9 (8.6-10.3) mg/dl Total Bilirubin 2.0 H (0.2-1.0) mg/dl AST 30 (13-39) U/L ALT 23 (7-52) U/L Alkaline Phosphatase 57 (34-104) U/L Total Protein 7.7 (6.0-8.3) gm/dl Albumin 4.8 (3.4-5.0) gm/dl Globulin 2.9 (2.5-4.0) gm/dl Albumin/Globulin Ratio 1.7 (0.9-2) Lipase 18 (11-82) U/L Imaging Data Radiologist's Impression: KUB X-Ray 05/19/23 17:17 XR KUB/Abdomen 1 view CLINICAL HISTORY: RLQ pain, recently passed stone TECHNIQUE: 1 view of the abdomen was obtained. Comparison: Comparison is made to abdomen radiographs and CT abdomen pelvis 05/18/2023 FINDINGS: Right renal stones are seen. Right ventricular system remains. The osseous structures are grossly unremarkable. The bowel gas pattern is nonobstructive. A moderate amount of stool is noted within the large bowel. IMPRESSION: Redemonstration of right mid ureter stone. Nonobstructive stones in the right kidney again noted. ACT 112: Negative or not required by law. Electronically signed by: Charly Silverman M.D. 05/19/2023 7:58 PM Renal Ultrasound 05/19/23 17:20 Exam(s): US RENAL EXAM: US Retroperitoneal Limited, Renal CLINICAL HISTORY: Reason for exam: right pelvic pain, recent ureteral stone. TECHNIQUE: Real-time limited ultrasound of the retroperitoneum with image documentation. COMPARISON: No relevant prior studies available. FINDINGS: Right kidney: The right kidney measures 11.2 x 5.5 x 4.9 cm. The right renal pelvis measures 1.2 cm. No hydronephrosis. No stones. Left kidney: The left kidney measures 11.2 x 5.6 x 4.3 cm. No stones. No hydronephrosis. Bladder: The urinary bladder is partially distended and unremarkable. Soft tissues: The prostate gland measures 4 x 3.3 x 3.7 cm with heterogenous echotexture. Other findings: The spleen is enlarged measuring 15.1 cm. IMPRESSION: Slight prominence of the right renal pelvis without overt right hydronephrosis. No shadowing stones identified. Electronically signed by: Tino Santacruz MD 05/19/23 20:56 PM [facility] Narrative 1852: The patient was evaluated in room B6. A complete history and physical exam was performed Cardiac monitoring: An order was placed for continuous cardiac monitoring. The monitor shows a rate of 90 with sinus rhythm interpreted by me 1940: Vital signs stable. Labs show lactic acid of 3.7. Creatinine 1.75 up from 1.29 yesterday. Sodium of 129. 30 cc/kg normal saline bolus administered in the emergency department as well as broad-spectrum antibiotics cefepime. Discussed with Dr. Whelan on-call neurology and he states that keep the patient n.p.o. if the patient develops a fever overnight to call him in and they could emergently remove the stone otherwise he will plan on doing it in the morning. Dr. Whelan recommends admitting the patient to medicine. Impression & Plan Sepsis, Nephrolithiasis Critical Care Time Critical Care Time: Yes Total Critical Care Time: 41 I have personally spent greater than 41 minutes of critical care time in the direct management of this patient. This includes bedside care, interpretation of diagnostic studies, and testing, discussion with consultants, patient, and family members, and other required patient management activities. This 41 minutes is in excess of all separately billable procedures. Discharge Plan Visit Data Chief Complaint: Abdominal Pain Stated Complaint: R SIDE PAIN , HERE YESTERDAY, KIDNEY STONES ED Provider: Agapito Bermudez Discharge Problem: Sepsis, Nephrolithiasis Patient Disposition: Admitted As Inpatient Discharge Instructions Interventions: ED Discharge Assessment Last Done: 05/19/23 22:36 Discharge Problem: Sepsis Qualifiers: Sepsis type: sepsis due to unspecified organism Sepsis acute organ dysfunction status: with acute organ dysfunction Severe sepsis acute organ dysfunction type: acute renal failure Acute renal failure type: unspecified Severe sepsis shock status: without septic shock Qualified Code(s): A41.9 - Sepsis, unspecified organism; R65.20 - Severe sepsis without septic shock; N17.9 - Acute kidney failure, unspecified
[2023-05-20] MEDS: MoRPHine SULFATE 2 MG/ML CARP IV STA (01:05)
[2023-05-20] MEDS: SODIUM CHLORIDE 0.9% 1,000 ML IV STA (01:07)
[2023-05-20] MEDS: CEFEPIME 2,000 MG in SYRINGE 0 ML IV SCH (06:21)
[2023-05-20] MEDS: LEVOTHYROXINE SODIUM 75 MCG TABLET PO SCH (06:21)
--- NOTE | 2023-05-20 07:25 | Urology Progress Note ---
Date of Service May 20, 2023 Assessment & Plan (1) Urolithiasis: (2) Sepsis: (3) Right flank pain: Plan Since he has not passed the stone and there are signs of possible infection, we discussed the plan for cystoscopy, right retrograde pyelogram and right ureteral stent placement. We reviewed risks and benefits of the surgery including bleeding, infection, injury to urinary tract, need for additional procedures, inability to place stent. He expressed understanding and would like to proceed with right ureteral stent placement Admission and Anticipated Discharge Date Admission Date: May 19, 2023 Subjective Feeling okay this morning, has not passed the stone yet Denies overt fevers or chills Review of Systems Review of Systems: 12 point review of systems negative exce pt for otherwise indicated. Physical Exam Physical Exam: Well-appearing, NAD Results & Data Vital Signs (Past 12 Hours) Vital Signs Temp Pulse Pulse Resp BP Pulse Ox O2 Del Method 05/20/23 03:00 37.5 C 103 H 18 99/68 L 92 Room Air 05/19/23 22:42 36.6 C 98 H 16 135/82 99 Room Air 05/19/23 22:35 97 H 05/19/23 20:45 98 Room Air 05/19/23 20:45 92 H 23 132/82 97 Room Air PG Care Time/CCT Total # of Minutes Spent Total Time Spent with Patient: Total time spent is greater than 50% in coordination of care (as documented) at patient's floor/unit and/or counseling patient: Coding Level of Care Code 74442 SUB INP/OBS CARE 03/25MIN Diagnoses Urolithiasis N20.9 Sepsis A41.9; R65.20; N17.9 Acute renal failure type: unspecified Sepsis acute organ dysfunction status: with acute organ dysfunction Sepsis type: sepsis due to unspecified organism Severe sepsis acute organ dysfunction type: acute renal failure Severe sepsis shock status: without septic shock Right flank pain R10.9 (2) Sepsis Acute renal failure type: unspecified Sepsis acute organ dysfunction status: with acute organ dysfunction Sepsis type: sepsis due to unspecified organism Severe sepsis acute organ dysfunction type: acute renal failure Severe sepsis shock status: without septic shock Qualified Code(s): A41.9 - Sepsis, unspecified organism; R65.20 - Severe sepsis without septic shock; N17.9 - Acute kidney failure, unspecified
--- NOTE | 2023-05-20 07:56 | Hospitalist Progress Note ---
Date of Service May 20, 2023 Assessment & Plan (1) Sepsis due to gram-negative UTI: Plan: 67 y/o with right ureteral kidney stone diagnosed 05/17, had been taking cipro as outpatient but developed fever to 103. Admitted with sepsis due to UTI, KARYN, 3 mm right obstructing ureteral stone with mild hydronephrosis Sepsis due to E. coli UTI with obstructing R ureteral nephrolithiasis present on admission with target organ damage of acute kidney injury Febrile and tachycardic overnight, improved. UA was negative however was on po cipro prior to admission -continue IV fluids for sepsis and KARYN -narrow antibiotics to ceftriaxone based on recent urine culture (2) Urolithiasis: Plan: Urolithiasis with a 3 mm stone in the proximal ureter by CT scan and early obstructing hydronephrosis -cystoscopy with stent placement 05/[address] Nevarez -follow up with urologist for definitive stone treatment after infection is controlled -continue flomax for BPH and nephrolithiasis -sepsis improved, tachycardia improved Tm overnight 39.5 -labsP -continue cefepime and vancomycin pending cultures -urology consulted -planned for cystoscopy with stenting today by Dr. Nevarez 1. yesterday. With what appears to be evolving early hydronephrosis on ultrasound today. Patient failed outpatient oral antibiotic therapy. He represents today. He is getting 2-1/2 L of saline from the ER. Will order saline at 100 cc an hour. IV cefepime. IV vancomycin. Urological consultation. Again if patient spikes a fever urology would like to be notified per the ER provider. N.p.o. after midnight. Blood cultures were obtained. Urine cultures pending. 2. Early clinical sepsis with lactic acidemia and relative tachycardia. Blood cultures obtained. IV cefepime IV vancomycin. Presumed to be urinary source. 3. Acute kidney injury due to obstructive uropathy and dehydration. Hydrate aggressively and recheck. 4. Lactic acidemia hydrate and recheck. 5. Diabetes mellitus sliding scales been ordered as well as twice daily Lantus. Monitor carefully he is relatively hyperglycemic this evening. 6. History of pancytopenia and beta thalassemia. Following with outpatient physician. Due to the concern of possible cirrhosis on the CT scan close outpatient follow-up needs to be taken place with liver biopsy considered. 7. Question of cirrhosis by CAT scan. Again short-term outpatient follow-up with primary care is recommended for consideration of liver biopsy if not already completed I do not see where this has been addressed in the medical record this CAT scan was result was just from yesterday. 8. Hypothyroidism continue same home medications. 9. Dyslipidemia continue same medications. 10. Essential hypertension continue same home meds. Plan: As discussed above. Please refer to orders for further planning. (3) KARYN (acute kidney injury): Plan: Due to sepsis and obstructing stone with hydronephrosis Baseline CKD stage 3 with Cr 1.3 -Cr increased from 1.75 to 1.99 -continue IV NS -good UOP -hold LLOYD -AM BMP (4) Pancytopenia: Plan: Chronic, related to splenomegaly, cirrhosis, beta thalassemia -monitor CBC context of sepsis -thrombocytopenia worse than baseline related to infection (5) BPH with obstruction/lower urinary tract symptoms: Plan: cont flomax (6) Type 2 diabetes mellitus: Plan: Empaglifozin, glipizide, metformin held Cont glargine 7 bid and premeal/correctional -adequate control today (7) Hypertension: Plan: Continue atenolol, lisinopril held for KARYN Continue atorvastatin (8) Cirrhosis: Plan: CMP and imaging consistent with cirrhosis He states he's aware of this and has had negative HBV and HCV screening in the past -monitor CMP -bilirubin improved overnight to nearer 2022 baseline of 1.3, 1.5 -INR 1.2 -outpatient follow up for this Admission and Anticipated Discharge Date Admission Date: May 19, 2023 Subjective feels MUCH better, denies flank or abdominal pain or dysuria Physical Exam 2 Physical Exam: PHYSICAL EXAMINATION Last 24h vital signs reviewed, see documentation in flowsheet General: comfortable appearing, no distress, very pleasant gentleman HEENT: Normocephalic, atraumatic, pupils round and equal, sclerae anicteric, no conjunctival injection, moist mucus membranes Lungs: Normal respiratory effort. Clear to auscultation bilaterally. No RRW Heart: Regular rate and rhythm, no murmurs. No JVD Abdomen: Soft, nontender, nondistended. Bowel sounds present. Extremities: Warm, dry, well-perfused. No extremity edema. Neuro: Alert and oriented x 4, face symmetric, moves 4 extremities well Psych: Normal affect and behavior Results & Data Results & Data Vital Signs (Past 12 Hours) Vital Signs Temp Pulse Pulse Resp BP Pulse Ox O2 Del Method 05/20/23 07:00 36.8 C 84 16 111/67 95 Room Air 05/20/23 03:00 37.5 C 103 H 18 99/68 L 92 Room Air 05/19/23 22:42 36.6 C 98 H 16 135/82 99 Room Air 05/19/23 22:35 97 H 05/19/23 20:45 98 Room Air 05/19/23 20:45 92 H 23 132/82 97 Room Air Laboratory Results 05/20/23 07:02 05/20/23 07:02 PG Care Time/CCT Total # of Minutes Spent Total Time Spent with Patient: Total time spent is greater than 50% in coordination of care (as documented) at patient's floor/unit and/or counseling patient: Coding Level of Care Code 69856 SUB INP/OBS CARE 3/50MIN Diagnoses Sepsis due to gram-negative UTI A41.50; N39.0 Urolithiasis N20.9 KARYN (acute kidney injury) N17.9 Pancytopenia D61.818 BPH with obstruction/lower urinary tract symptoms N40.1; N13.8 Type 2 diabetes mellitus E11.9 Hypertension I10 Cirrhosis K74.60
[2023-05-20 07:59] LABS: Estimated Average Glucose 163 mg/dl; Hemoglobin A1C 7.3 % (4.5-5.6)
[2023-05-20 08:07] LABS: INR 1.2 (0.9-1.1)
[2023-05-20 08:19] LABS: Basophils # (auto) 0.01 K/uL (0.00-0.20); Basophils % (auto) 0.1 %; Echinocytes 1+; Eosinophils # (auto) 0.01 K/uL (0.00-0.50); Eosinophils % (auto) 0.1 %; Hematocrit (blood only) 29.5 % (42.0-52.0); Hemoglobin 9.6 g/dl (14.0-18.0); Immature Granulocytes # (auto) 0.05 K/uL (0.01-0.20); Immature Granulocytes % (auto) 0.7 %; Lymphocytes # (auto) 0.48 K/uL (1.20-3.40); Lymphocytes % (auto) 6.5 %; Mean Corpuscular Hgb Conc 32.5 g/dL (32.0-36.0); Mean Corpuscular Volume 67.5 fL (80.0-100.0); Monocytes # (auto) 0.67 K/uL (0.11-0.59); Monocytes % (auto) 9.1 %; Neutrophils # (auto) 6.15 K/uL (1.40-6.50); Neutrophils % (auto) 83.5 %; Platelet Count 66 K/uL (130-400); Polychromasia 1+; RDW Coefficient of Variation 15.7 % (11.5-14.5); RDW Standard Deviation 37.2 fL (36.4-46.3); Red Blood Count 4.37 M/uL (4.70-6.10); Schistocytes 1+; Tear Drop Cells 2+; White Blood Count 7.37 K/ul (4.8-10.8)
[2023-05-20] MEDS: ATENOLOL 25 MG TABLET PO SCH (08:20)
[2023-05-20] MEDS: ATORVASTATIN 10 MG TAB PO SCH (08:20)
[2023-05-20] MEDS: TAMSULOSIN HCL 0.4 MG CAP PO SCH (08:20)
--- NOTE | 2023-05-20 08:44 | Anesthesiology Consultation ---
Date of Service May 20, 2023 Assessment & Plan Chart Review Chart Review: entry rep initiated History Surgery Operation Date: 05/20/23 08:20 Proposed Procedures p Cystoscopy, Right Retrograde Pyelogram and Stent Placement - Dave Nevarez MD Height/Weight Height: 5 ft 6 in Weight: 72.3 kg Allergies Allergy/AdvReac Type Severity Reaction Status Date / Time Sulfa (Sulfonamide Allergy Intermediate Hives Verified 05/19/23 20:32 Antibiotics) dulaglutide [From Trulicity] Allergy Mild Skin Verified 05/19/23 20:32 reaction pneumococcal vaccine Allergy fatigue, Verified 05/19/23 20:32 [From [place] 13 (PF)] weakness Medications Home Medications Medication Instructions Recorded Confirmed Last Taken cholecalciferol (vitamin D3) 125 5,000 units PO QPM 03/30/19 05/19/23 05/18/23 mcg (5,000 unit) capsule multivitamin 1 tab PO QAM 06/15/19 05/19/23 05/19/23 metformin 500 mg tablet,extended 1,000 mg (2 x 500 mg) PO BID 90 12/04/22 05/19/23 05/19/23 08:00 release 24 hr days #360 tabs FreeStyle Irma 14 Day Sensor #6 ea 03/10/23 05/19/23 Unknown (flash glucose sensor) atenolol 25 mg tablet 25 mg PO QAM 03/23/23 05/19/23 05/19/23 empagliflozin 10 mg tablet 10 mg PO QPM 03/23/23 05/19/23 05/18/23 glipizide 5 mg tablet 2.5 mg PO QAM 03/23/23 05/19/23 05/19/23 levothyroxine 75 mcg tablet 75 mcg PO QAM 03/23/23 05/19/23 05/19/23 lisinopril 20 mg tablet 20 mg PO QPM 03/23/23 05/19/23 05/18/23 ciprofloxacin HCl 500 mg tablet 500 mg PO BID 10 days #20 tabs 05/18/23 05/19/23 Unknown (Cipro) ondansetron 4 mg disintegrating 4 mg PO Q6H PRN nausea and 05/18/23 05/19/23 Unknown tablet vomiting #12 tabs oxycodone 5 mg tablet 5 mg PO Q6H PRN pain #10 tabs 03/19/24 03/20/24 Unknown tamsulosin 0.4 mg capsule (Flomax) 0.4 mg PO DAILY #14 caps 05/18/23 05/19/23 05/19/23 atorvastatin 10 mg tablet 5 mg PO QAM 05/19/23 05/19/23 05/19/23 Active Medications Generic Name Dose Route Start Last Admin Trade Name Freq PRN Reason Stop Dose Admin Atenolol 25 mg 05/20/23 09:00 05/20/23 08:20 Atenolol 25 Mg Tablet PO 06/19/23 08:59 25 mg QAM LAZARO Administration Atorvastatin Calcium 5 mg 05/20/23 09:00 05/20/23 08:20 Atorvastatin 10 Mg Tab PO 06/19/23 08:59 5 mg QAM LAZARO Administration Hydromorphone HCl 0.5 mg 05/19/23 21:02 05/19/23 21:15 Hydromorphone Inj 0.5 Mg/0.5 Ml Syr IV 06/02/23 21:01 0.5 mg Q3H PRN Administration Pain Scale 4,5,6 Sodium Chloride 1,000 mls @ 100 mls/hr 05/19/23 21:15 05/20/23 08:20 Nss IV 06/18/23 21:14 100 mls/hr .Q10H LAZARO Administration Cefepime HCl 2,000 mg/ Syringe 20 mls @ 5 mls/min 05/20/23 06:00 05/20/23 06:21 IV 05/30/23 05:59 5 mls/min Q12H LAZARO Administration Protocol Insulin Aspart 0 units 05/20/23 00:00 05/20/23 06:12 Insulin Aspart Per Unit Charge SC 06/19/23 00:00 Not Given Q6 LAZARO Insulin Glargine 7 units 05/19/23 21:15 05/20/23 07:49 Lantus Per Unit Charge SQ 06/18/23 21:14 Not Given BID LAZARO Levothyroxine Sodium 75 mcg 05/20/23 06:30 05/20/23 06:21 Levothyroxine Sodium 75 Mcg Tablet PO 06/19/23 06:29 75 mcg DAILYBB LAZARO Administration Ondansetron HCl 4 mg 05/19/23 21:02 03/20/24 21:15 Ondansetron Inj 2 Mg/Ml 2 Ml Vial IV 06/18/23 21:01 4 mg Q6H PRN Administration Nausea Oxycodone HCl 5 mg 05/19/23 22:32 05/20/23 06:20 Oxycodone Hcl Ir 5 Mg Tab (Immediate Release) PO 06/02/23 22:31 5 mg Q6H PRN Administration pain Tamsulosin HCl 0.4 mg 05/20/23 09:00 05/20/23 08:20 Tamsulosin Hcl 0.4 Mg Cap PO 06/19/23 08:59 0.4 mg DAILY LAZARO Administration Vitamin D 125 mcg 05/19/23 22:32 05/19/23 23:52 Cholecalciferol 125 Mcg (5,000 Units) Tab PO 06/18/23 22:31 Not Given QPM LAZARO NPO Date Last Intake of Fluids: 05/20/23 Time Last Intake of Fluids: 06:30 Last Intake of Fluids Comment: sip of water with meds Date Last Intake of Solids: 05/19/23 Time Last Intake of Solids: 20:00 Last Intake of Solids Comment: ate solid food prior to coming to hospital Past Medical History Medical History Right ureteral stone Diabetes mellitus, type 2 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 w/beta thalassemia [place] syndrome Ptosis, right eyelid Hypothyroidism Pancytopenia "low grade" Cardiac murmur mild Hypertension Past Family History Family History Father Family history of diabetes mellitus Prostate cancer Hypertension Mother Family history of diabetes mellitus Heart disease Denies family history of Colon cancer Ovarian cancer Myocardial infarction Breast cancer Past Surgical History Surgical History History of esophagogastroduodenoscopy (EGD) Hx of blepharoplasty rt eye, age 6 for congential ptosis S/P hemorrhoidectomy 2022 History of colonoscopy (2019) History of herniorrhaphy rt inguinal History of tooth extraction Social History Smoking Status: Former smoker Do You Dip or Chew Tobacco: No Hx Alcohol Use: No Alcohol type: beer alcohol intake frequency: holidays/special occasions only Hx Substance Use: No substance use type: does not use Physical Exam Vital Signs Last Vital Signs Temp 98.2 F 05/20/23 07:00 Pulse 84 05/20/23 07:00 Resp 16 05/20/23 07:00 BP 111/67 05/20/23 07:00 Pulse Ox 95 05/20/23 07:00 O2 Del Method Room Air 05/20/23 07:00 Testing Laboratory Results 05/20/23 07:02 PT 13.0 Seconds (9.0-12.0) H 05/20/23 07:02 INR 1.2 (0.9-1.1) H 05/20/23 07:02 Hemoglobin A1c 7.3 % (4.5-5.6) H 05/20/23 07:02 Urine Color Yellow 05/19/23 Unknown Urine Appearance Clear (Clear) 05/19/23 Unknown Urine pH 5.0 (4.5-7.5) 05/19/23 Unknown Ur Specific [place] 1.027 (1.000-1.030) 05/19/23 Unknown Urine Protein Negative (Negative) 05/19/23 Unknown Urine Glucose (UA) 3+ (Negative) H 05/19/23 Unknown Urine Ketones 1+ (Negative) H 05/19/23 Unknown Urine Nitrite Negative (Negative) 05/19/23 Unknown Ur Leukocyte Esterase Negative (Negative) 05/19/23 Unknown 05/20/23 05/19/23 05/19/23 06:09 23:33 21:52 POC Glucose 146 H 214 H 262 H
[2023-05-20 11:37] LABS: Albumin Globulin Ratio 1.5 (0.9-2); Albumin Level 3.6 gm/dl (3.4-5.0); BUN Creatinine Ratio 17.6 (10-20); Bilirubin,Total 1.7 mg/dl (0.2-1.0); Calcium 8.1 mg/dl (8.6-10.3); Chol HDL Ratio 2.2 (0-5); Creatinine Clr Calc Pharmacy 32.5 ml/min; Est GFR (African American) 39.1 ml/min; Est GFR (Non-African American) 33.7 ml/min; Globulin 2.4 gm/dl (2.5-4.0); Potassium 4.7 mmol/L (3.5-5.1); Thyroid Stimulating Hormone 0.942 uIu/ml (0.300-4.500)
[2023-05-20 11:45] LABS: Magnesium 1.4 mg/dl (1.7-2.4)
[2023-05-20] MEDS ORDERED: fentaNYL citrate PF 100 MCG/2 ML VIAL ONE (11:58)
[2023-05-20] MEDS ORDERED: MIDAZOLAM HCL 1 MG/ML 2ML VIAL ONE (11:58)
[2023-05-20] MEDS ORDERED: VANCOMYCIN HCL 750 MG in SODIUM CHLORIDE 0.9% 250 ML IV SCH (12:00)
[2023-05-20] MEDS ORDERED: PROPOFOL IV EMULSION 10 MG/ML 20 ML VIAL IV ONE (12:05)
[2023-05-20] MEDS ORDERED: LIDOCAINE 2% 2 ML VIAL/AMP(20MG/ML) INFIL ONE (12:05)
[2023-05-20] MEDS ORDERED: ONDANSETRON INJ 2 MG/ML 2 ML VIAL ONE (12:05)
[2023-05-20] MEDS ORDERED: ePHEDrine sulfate 50 MG/ML AMP IV PRN (12:13)
[2023-05-20] MEDS ORDERED: ATROPINE SULFATE 0.1 MG/ML 10ML SYR IV PRN (12:13)
[2023-05-20] MEDS: DIATRIZOATE MEGLUMINE 30% 100ML VIAL INSTIL PRN (12:41)
--- NOTE | 2023-05-20 12:43 | Operative Report ---
PG Post Operative Report Pre & Post Diagnosis Operation Date: 05/20/23 08:20 Pre-Op Diagnosis: Right kidney stone Post-Op Diagnosis: Right kidney stone I identified the patient and participated in the time-out.: Yes Procedure Operation Date: 05/20/23 08:20 Actual Procedures p Cystoscopy, Right Retrograde Pyelogram and Right ureteral stent Placement - Dave Nevarez MD Surgeon Dave Nevarez MD Verify Rep None Estimated Blood Loss 0 Findings Consistent with Post-Op Diagnosis Specimens None Drains 6 Serbian by 26 cm double-J ureteral stent in the right ureter Anesthesia Type MAC Complications none Disposition Accompanied Patient To Recovery: Yes Disposition: Recovery Room Indications This is a 67-year-old male who presented to the hospital with right flank pain and signs of urinary tract infection. CT scan demonstrated a stone in the right ureter. He is being brought to the OR for right ureteral stent placement Description of Procedure The patient was identified in the holding area and informed consent was confirmed. He was marked on the right side, then was taken to the operating room where anesthesia was initiated. He was placed in the dorsal lithotomy position with all pressure points appropriately padded. He was prepped and draped in the usual sterile fashion and a preoperative timeout was performed. A well-lubricated cystoscope was inserted per urethra and panendoscopy was performed. The pendulous urethra was normal with no strictures or mucosal abnormalities. The prostate was of normal size. His bladder appeared grossly normal with no tumors or stones appreciated. Ureteral orifices were in orthotopic position bilaterally. A 5 Serbian open-ended catheter was inserted and used to intubate the right ureteral orifice. A retrograde pyelogram was performed using Cystografin. The distal ureter was normal in course and caliber. I tried to minimize the amount of pressure to avoid pyelovenous backflow. A sensor wire was advanced up to the kidney under fluoroscopic guidance. Over the wire, a 6 Serbian x 26 cm double-J ureteral stent was advanced. When the wire was removed, there was a good curl in the kidney under fluoroscopic guidance. A curl was visualized in the bladder with the cystoscope. There was drainage of mildly turbid urine. At this point the bladder was drained and all instrumentation was removed. The patient was then awakened from anesthesia and was brought to the PACU in stable condition. I attest to the content of the Intraoperative Record and any orders documented therein. Any exceptions are noted below.
--- NOTE | 2023-05-20 13:13 | Anesthesiology Progress Note ---
Date of Service May 20, 2023 Anesthesia Post Procedure Vital Signs Vital Signs: Temp Pulse Pulse Resp BP BP Pulse Ox 05/20/23 13:05 79 22 95/61 L 94 05/20/23 12:55 80 24 91/62 L 94 05/20/23 12:49 36.9 C 82 20 93/58 L 100 05/20/23 11:16 37.0 C 82 20 110/64 98 05/20/23 11:02 36.8 C 82 18 96/63 L 99 05/20/23 07:00 36.8 C 84 16 111/67 95 05/20/23 03:00 37.5 C 103 H 18 99/68 L 92 05/19/23 22:42 36.6 C 98 H 16 135/82 99 05/19/23 22:35 97 H 05/19/23 20:45 98 05/19/23 20:45 92 H 23 132/82 97 05/19/23 17:16 36.8 C 94 H 20 153/86 H 97 O2 Del Method O2 Flow Rate 05/20/23 13:05 Room Air 05/20/23 12:55 Room Air 05/20/23 12:49 Oxymask 4 05/20/23 11:16 Room Air 05/20/23 11:02 Room Air 05/20/23 07:00 Room Air 05/20/23 03:00 Room Air 05/19/23 22:42 Room Air 05/19/23 22:35 05/19/23 20:45 Room Air 05/19/23 20:45 Room Air 05/19/23 17:16 Room Air Pain Intensity Right Flank: Pain Intensity: 3 Transfer of Care Handoff Completed per policy Notes Mental Status: alert / awake / arousable Patient Amnestic to Procedure: Yes Nausea / Vomiting: adequately controlled Pain: adequately controlled Airway Patency, RR, SpO2: stable & adequate BP & HR: stable & adequate Hydration State: stable & adequate Anesthetic Complications: no major complications apparent
--- NOTE | 2023-05-20 13:23 | Fluoroscopy Report ---
INTRAOPERATIVE RADIOGRAPH CLINICAL HISTORY: Right ureteral stent placement. Fluoro time: 7 seconds Ka,r: 1.74 mGy FINDINGS: A single spot fluoroscopic image of the right upper quadrant is correlated with abdominal C T dated 05/18/2023. The image shows the proximal end of a right ureteral stent in appropriate position . IMPRESSION: Intraoperative image from a right ureteral stent placement procedure. Electronically signed by: Venkat Lazo M.D. 05/20/2023 1:21 PM
[2023-05-20] MEDS: cefTRIAXone SODIUM 2,000 MG in DEXTROSE 5 % MINI-B 50 ML IV SCH (13:31)
[2023-05-20] MEDS: INSULIN ASPART PER UNIT CHARGE SC SCH (17:15)
[2023-05-20] MEDS: MELATONIN 3 MG TAB PO PRN (21:30)
[2023-05-21 07:20] LABS: Hematocrit (blood only) 28.4 % (42.0-52.0); Hemoglobin 9.1 g/dl (14.0-18.0); Mean Corpuscular Hemoglobin 21.7 pg (25.0-34.0); Mean Corpuscular Volume 67.6 fL (80.0-100.0); Platelet Count 70 K/uL (130-400); RDW Coefficient of Variation 15.6 % (11.5-14.5); RDW Standard Deviation 37.1 fL (36.4-46.3); White Blood Count 5.52 K/ul (4.8-10.8)
[2023-05-21 07:46] LABS: Albumin Globulin Ratio 1.5 (0.9-2); Albumin Level 3.4 gm/dl (3.4-5.0); BUN Creatinine Ratio 22.7 (10-20); Bilirubin,Total 1.3 mg/dl (0.2-1.0); Calcium 8.2 mg/dl (8.6-10.3); Creatinine Clr Calc Pharmacy 43.1 ml/min; Est GFR (Non-African American) 47.5 ml/min; Globulin 2.2 gm/dl (2.5-4.0); Potassium 4.3 mmol/L (3.5-5.1); Total Protein 5.6 gm/dl (6.0-8.3)
[2023-05-21] MEDS: LANTUS PER UNIT CHARGE SQ SCH (08:12)
--- NOTE | 2023-05-21 12:33 | Urology Progress Note ---
Date of Service May 21, 2023 Assessment & Plan (1) Urolithiasis: (2) Sepsis: Plan -POD #1 s/p cystoscopy and right ureteral stent placement with Dr. Nevarez. -Feeling well, tolerating the ureteral stent with minimal bother. -Afebrile and hemodynamically stable. -Labs reviewed- WBC 5.52, Hemoglobin 9.1, Creatinine 1.50. -Urine culture final with E. coli, blood cultures preliminary no growth. -On Ceftriaxone, follow cultures. -Voiding spontaneously, continue to monitor. -Plan to D/C when medically stable per primary team with course of appropriate PO antibiotics for complicated UTI. -Recommend Tamsulosin and prn pain medication for stent management. -Will arrange outpatient follow-up for definitive stone treatment. -Expected clinical course reviewed, all questions answered. -Urology will sign off. Please call with any further questions or concerns. Admission and Anticipated Discharge Date Admission Date: May 19, 2023 Subjective Patient examined at bedside this AM. Awake, resting in bed on arrival. No acute distress. Tolerating the ureteral stent with minimal bother. Voiding without issue. Denies hematuria. Denies fever, chills, nausea, vomiting. Overall feeling well and eager to go home Review of Systems Constitutional: as per Subjective / HPI Genitourinary: + as per Subjective / HPI Physical Exam Constitutional: no acute distress Respiratory: no respiratory distress and no labored breathing Neurologic: moves all extremities and awake Psychiatric: A+Ox3, euthymic affect Results & Data Vital Signs (Past 12 Hours) Vital Signs Temp Pulse Pulse Resp BP Pulse Ox O2 Del Method 05/21/23 11:10 36.7 C 62 18 122/75 97 Room Air 05/21/23 08:00 60 05/21/23 07:39 36.8 C 76 20 124/67 93 Room Air 05/21/23 03:19 36.6 C 80 18 124/69 94 Room Air PG Care Time/CCT Total # of Minutes Spent Total Time Spent with Patient: Total time spent is greater than 50% in coordination of care (as documented) at patient's floor/unit and/or counseling patient: Coding Level of Care Code 07523 SUB INP/OBS CARE 2/35MIN Diagnoses Urolithiasis N20.9 Sepsis A41.9; R65.20; N17.9 Acute renal failure type: unspecified Sepsis acute organ dysfunction status: with acute organ dysfunction Sepsis type: sepsis due to unspecified organism Severe sepsis acute organ dysfunction type: acute renal failure Severe sepsis shock status: without septic shock (2) Sepsis Acute renal failure type: unspecified Sepsis acute organ dysfunction status: with acute organ dysfunction Sepsis type: sepsis due to unspecified organism Severe sepsis acute organ dysfunction type: acute renal failure Severe sepsis shock status: without septic shock Qualified Code(s): A41.9 - Sepsis, unspecified organism; R65.20 - Severe sepsis without septic shock; N17.9 - Acute kidney failure, unspecified
--- NOTE | 2023-05-21 15:15 | Hospitalist Progress Note ---
Date of Service May 21, 2023 Assessment & Plan (1) Sepsis due to gram-negative UTI: Plan: 67 y/o with right ureteral kidney stone diagnosed 05/17, had been taking cipro as outpatient but developed fever to 103. Admitted with sepsis due to UTI, KRAYN, 3 mm right obstructing ureteral stone with mild hydronephrosis Sepsis due to E. coli UTI with obstructing R ureteral nephrolithiasis present on admission with target organ damage of acute kidney injury Febrile and tachycardic overnight, improved. UA was negative however was on po cipro prior to admission -sepsis resolved, blood cx NGTD, urine Cx E. coli R to cipro -continue IV fluids for KARYN - reduce to NS at 75 -continue ceftriaxone today, change to oral tomorrow if blood cx remain negative at 48h -discussed with urology - recommended cefdinir for 7-10d (2) Urolithiasis: Plan: Urolithiasis with a 3 mm stone in the proximal ureter by CT scan and early obstructing hydronephrosis -cystoscopy with stent placement 05/[address] Nevarez -follow up with urologist for definitive stone treatment after infection is controlled - scheduling next week with Dr. Calderon for stone extraction and stent exchange -continue flomax for BPH and nephrolithiasis (3) KARYN (acute kidney injury): Plan: Due to sepsis and obstructing stone with hydronephrosis Baseline CKD stage 3 with Cr 1.3 -Cr increased from 1.75 to 1.99, down to 1.5 today -continue IV NS -good UOP -hold LLOYD -AM BMP (4) Pancytopenia: Plan: Chronic, related to splenomegaly, cirrhosis, beta thalassemia -monitor CBC context of sepsis -thrombocytopenia worse than baseline related to infection - improved 05/20 (5) BPH with obstruction/lower urinary tract symptoms: Plan: cont flomax (6) Type 2 diabetes mellitus: Plan: Empaglifozin, glipizide, metformin held Cont glargine 7 bid and premeal/correctional -adequate control today (7) Hypertension: Plan: Continue atenolol, lisinopril held for KARYN Continue atorvastatin (8) Cirrhosis: Plan: CMP and imaging consistent with cirrhosis He states he's aware of this and has had negative HBV and HCV screening in the past -monitor CMP -bilirubin improved back to 2022 baseline of 1.3, 1.5 -INR 1.2 -outpatient follow up for this with Dr. Paul - discussed with him and his . Could be metabolic - NAFLD/COPPOLA. No significant alcohol history. Admission and Anticipated Discharge Date Admission Date: May 19, 2023 Subjective feels MUCH better. only has slight flank pain when urinating. no CP or dyspnea. Physical Exam 2 Physical Exam: PHYSICAL EXAMINATION Last 24h vital signs reviewed, see documentation in flowsheet exam unchanged 05/20: General: comfortable appearing, no distress, very pleasant gentleman HEENT: Normocephalic, atraumatic, pupils round and equal, sclerae anicteric, no conjunctival injection, moist mucus membranes Lungs: Normal respiratory effort. Clear to auscultation bilaterally. No RRW Heart: Regular rate and rhythm, no murmurs. No JVD Abdomen: Soft, nontender, nondistended. Bowel sounds present. Extremities: Warm, dry, well-perfused. No extremity edema. Neuro: Alert and oriented x 4, face symmetric, moves 4 extremities well Psych: Normal affect and behavior Results & Data Results & Data Vital Signs (Past 12 Hours) Vital Signs Temp Pulse Pulse Resp BP Pulse Ox O2 Del Method 05/21/23 11:10 36.7 C 62 18 122/75 97 Room Air 05/21/23 08:00 60 05/21/23 07:39 36.8 C 76 20 124/67 93 Room Air 05/21/23 03:19 36.6 C 80 18 124/69 94 Room Air Laboratory Results 05/21/23 06:48 05/21/23 06:48 PG Care Time/CCT Total # of Minutes Spent Total Time Spent with Patient: Total time spent is greater than 50% in coordination of care (as documented) at patient's floor/unit and/or counseling patient: Coding Level of Care Code 18614 SUB INP/OBS CARE 2/35MIN Diagnoses Sepsis due to gram-negative UTI A41.50; N39.0 Urolithiasis N20.9 KARYN (acute kidney injury) N17.9 Pancytopenia D61.818 BPH with obstruction/lower urinary tract symptoms N40.1; N13.8 Type 2 diabetes mellitus E11.9 Hypertension I10 Cirrhosis K74.60
--- NOTE | 2023-05-21 17:07 | XRay Report ---
XR chest 2V PA/lateral HISTORY: pre op COMPARISON: Chest 08/14/2011. FINDINGS: No pneumothorax. No pleural effusions. No focal lung consolidations to suggest a pneumonia. No evidence for pulmonary edema. The cardiac silhouette is borderline enlarged. No acute fractures i dentified. Partially visualized right ureteral stent is noted. IMPRESSION: Stable borderline cardiomegaly. Otherwise, no acute process within the chest. ACT 112: Negative or not required by law. Electronically signed by: Rj Vargas M.D. 05/21/2023 5:06 PM
[2023-05-22 08:02] LABS: Albumin Globulin Ratio 1.4 (0.9-2); Albumin Level 3.5 gm/dl (3.4-5.0); BUN Creatinine Ratio 19.1 (10-20); Bilirubin,Total 1.2 mg/dl (0.2-1.0); Calcium 8.6 mg/dl (8.6-10.3); Creatinine Clr Calc Pharmacy 56.2 ml/min; Est GFR (African American) 75.9 ml/min; Est GFR (Non-African American) 65.5 ml/min; Globulin 2.5 gm/dl (2.5-4.0); Potassium 3.7 mmol/L (3.5-5.1)
--- NOTE | 2023-05-22 08:44 | Electrocardiogram Report ---
Test Reason : Blood Pressure : / mmHG Vent. Rate : 079 BPM Atrial Rate : 079 BPM P-R Int : 162 ms QRS Dur : 088 ms QT Int : 382 ms P-R-T Axes : 036 017 034 degrees QTc Int : 438 ms Normal sinus rhythm Normal ECG When compared with ECG of 28-OCT-2012 09:10, No significant change was found Confirmed by Luis Enrique Eid ([id number]) on 05/22/2023 8:43:45 AM Referred By: REFERRED SELF Confirmed By:Luis Enrique Eid
--- NOTE | 2023-05-22 14:21 | Discharge Summary ---
Date of Service May 22, 2023 Admission HPI Per Admitting Provider This is a pleasant 67-year-old male who came to the ER yesterday with the above complaints. He had a CAT scan that showed a proximal right ureter stone 3 mm. Was recommended to be admitted for urological evaluation. The patient declined and was discharged home on oral antibiotics. Patient followed up with his primary care physician today the patient was feeling worse with increased pain. He was directed back to the ER. At this point in the ER laboratory studies show acute kidney injury with a creatinine up to 1.75 with a lactic acidemia with a lactic acid of 3.7 renal ultrasound was performed in the ER today shows right- sided stone with what appears to be probable evolving early right-sided hydronephrosis. Blood cultures were obtained the patient received IV cefepime. Urology was consulted Dr. Whelan who plans on taking the patient to the OR tomorrow unless the patient spikes a fever overnight to become septic at which point he would like to be notified this was per the ER doctor's conversation with urology relayed to me. Other laboratory studies show mild anemia and thrombocytopenia which appears chronic the patient has a history of pancytopenia unknown etiology however the CAT scan yesterday does show a cirrhotic appearance of the liver. He will need to follow-up with us as an outpatient. Principal Diagnosis Sepsis with target organ damage of acute kidney injury caused by E. coli urinary tract infection with obstructing nephrolithiasis Discharge Exam PHYSICAL EXAMINATION Last 24h vital signs reviewed, see documentation in flowsheet General: comfortable appearing, no distress HEENT: Normocephalic, atraumatic, pupils round and equal, sclerae anicteric, no conjunctival injection, moist mucus membranes Lungs: Normal respiratory effort. Clear to auscultation bilaterally. No RRW Heart: Regular rate and rhythm, no murmurs. No JVD Abdomen: Soft, nontender, nondistended. Bowel sounds present. Extremities: Warm, dry, well-perfused. No extremity edema. Neuro: Alert and oriented x 4, face symmetric, moves 4 extremities well Psych: Normal affect and behavior Discharge Data Allergies Allergy/AdvReac Type Severity Reaction Status Date / Time dulaglutide [From Trulicity] Allergy Unknown Skin Verified 05/21/23 13:12 reaction pneumococcal vaccine Allergy Unknown fatigue, Verified 05/21/23 13:12 [From Prevnar 13 (PF)] weakness Sulfa (Sulfonamide Allergy Unknown Hives Verified 05/21/23 13:12 Antibiotics) Consultations 05/19/23 20:48 ED Decision to Admit Stat 05/19/23 21:03 Consult Urology Routine Procedures Performed Operation Date: 05/20/23 08:20 Actual Procedures p Cystoscopy, Right Retrograde Pyelogram and Right Stent Placement(Right) - Dave Nevarez MD Ordered Studies 05/19/23 17:20 US renal/blad retro comp Stat 05/20/23 11:31 FL retrograde includes kub Routine KUB X-Ray 05/19/23 17:17 XR KUB/Abdomen 1 view CLINICAL HISTORY: RLQ pain, recently passed stone TECHNIQUE: 1 view of the abdomen was obtained. Comparison: Comparison is made to abdomen radiographs and CT abdomen pelvis 05/18/2023 FINDINGS: Right renal stones are seen. Right ventricular system remains. The osseous structures are grossly unremarkable. The bowel gas pattern is nonobstructive. A moderate amount of stool is noted within the large bowel. IMPRESSION: Redemonstration of right mid ureter stone. Nonobstructive stones in the right kidney again noted. ACT 112: Negative or not required by law. Electronically signed by: Charly Silverman M.D. 05/19/2023 7:58 PM Renal Ultrasound 05/19/23 17:20 Exam(s): US RENAL EXAM: US Retroperitoneal Limited, Renal CLINICAL HISTORY: Reason for exam: right pelvic pain, recent ureteral stone. TECHNIQUE: Real-time limited ultrasound of the retroperitoneum with image documentation. COMPARISON: No relevant prior studies available. FINDINGS: Right kidney: The right kidney measures 11.2 x 5.5 x 4.9 cm. The right renal pelvis measures 1.2 cm. No hydronephrosis. No stones. Left kidney: The left kidney measures 11.2 x 5.6 x 4.3 cm. No stones. No hydronephrosis. Bladder: The urinary bladder is partially distended and unremarkable. Soft tissues: The prostate gland measures 4 x 3.3 x 3.7 cm with heterogenous echotexture. Other findings: The spleen is enlarged measuring 15.1 cm. IMPRESSION: Slight prominence of the right renal pelvis without overt right hydronephrosis. No shadowing stones identified. Electronically signed by: Tino Santacruz MD 05/19/23 20:56 PM Retrograde Pyelogram 05/20/23 11:31 INTRAOPERATIVE RADIOGRAPH CLINICAL HISTORY: Right ureteral stent placement. Fluoro time: 7 seconds Ka,r: 1.74 mGy FINDINGS: A single spot fluoroscopic image of the right upper quadrant is correlated with abdominal CT dated 05/18/2023. The image shows the proximal end of a right ureteral stent in appropriate position. IMPRESSION: Intraoperative image from a right ureteral stent placement procedure. Electronically signed by: Venkat Lazo M.D. 05/20/2023 1:21 PM Chest X-Ray 05/21/23 15:35 XR chest 2V PA/lateral HISTORY: pre op COMPARISON: Chest 08/14/2011. FINDINGS: No pneumothorax. No pleural effusions. No focal lung consolidations to suggest a pneumonia. No evidence for pulmonary edema. The cardiac silhouette is borderline enlarged. No acute fractures identified. Partially visualized right ureteral stent is noted. IMPRESSION: Stable borderline cardiomegaly. Otherwise, no acute process within the chest. ACT 112: Negative or not required by law. Electronically signed by: Rj Vargas M.D. 05/21/2023 5:06 PM 05/21/23 06:48 05/22/23 07:20 Hospital Course (1) Sepsis due to gram-negative UTI: 67 y/o with right ureteral kidney stone diagnosed 05/17, had been taking cipro as outpatient but developed fever to 103. Admitted with sepsis due to UTI, KARYN, 3 mm right obstructing ureteral stone with mild hydronephrosis Sepsis due to E. coli UTI with obstructing R ureteral nephrolithiasis present on admission with target organ damage of acute kidney injury Febrile and tachycardic overnight, improved. UA was negative however was on po cipro prior to admission -sepsis resolved, blood cx NGTD at 72h, urine Cx E. coli R to cipro -treated with IV fluids for KARYN - resolved. Instructed to hold lisinopril 2 weeks then resume -treated with IV ceftriaxone then cefdinir on discharge for 10d as recommended by urology (2) Urolithiasis: Urolithiasis with a 3 mm stone in the proximal ureter by CT scan and early obstructing hydronephrosis -cystoscopy with stent placement 05/[address] Nevarez -follow up with urologist for definitive stone treatment after infection is controlled - scheduled this upcoming week with Dr. Calderon for stone extraction and stent exchange -continue flomax for BPH and nephrolithiasis (3) KARYN (acute kidney injury): Due to sepsis and obstructing stone with hydronephrosis Baseline CKD stage 3 with Cr 1.3 -Cr increased from 1.75 to 1.99, down to 1.15 by time of discharge, resolved - see above Moderate hyponatremia Na 129 present on admission related to sepsis, KARYN, volume depletion - resolved with IV fluids and normalized (4) Pancytopenia: Chronic, related to splenomegaly, cirrhosis, beta thalassemia -thrombocytopenia worse than baseline related to infection - improved to 70 on 05/20 (5) BPH with obstruction/lower urinary tract symptoms: cont flomax (6) Type 2 diabetes mellitus: Empaglifozin, glipizide, metformin resolved (7) Hypertension: Continue atenolol, lisinopril held for KARYN Continue atorvastatin (8) Cirrhosis: CMP and imaging consistent with cirrhosis He states he's aware of this and has had negative HBV and HCV screening in the past -monitor CMP -bilirubin improved back to 2022 baseline of 1.3 -INR 1.2 -outpatient follow up for this with Dr. Paul - discussed with him and his . Could be metabolic - NAFLD/COPPOLA. No significant alcohol history. Total Time Total Time Spent Total Time Spent (In Minutes): 28 minutes Discharge Plan Discharge Items Patient Disposition: Home - Self-Care Reason For Visit: SEPSIS, K STONE Discharge Diagnosis: Sepsis and acute kidney injury due to UTI, obstructing nephrolithiasis Activity: Resume your previous activity Non-emergency contact: Primary Care Provider and Urologist Call non-emergency contact if: you have any medication questions, your symptoms worsen and you have a fever Follow-up/Referrals: Vinayak Paul DO [Physician] - Haroon Calderon MD [Physician] - Bryant Muro DO [Primary Care Provider] - Diet: Carb Consistent or DM2 Addtl Attending Provider Instructions: You were treated for urinary tract infection and kidney stone that was blocking your right ureter -you were treated with IV antibiotics and IV fluids, acute kidney injury has resolved -stent was placed in right ureter -continue taking antibiotics until they run out. you may wish to take a probiotic for 2 to 4 weeks to prevent antibiotic-associated diarrhea -follow up with Dr. Yumiko for stone procedure and stent exchange Hold your lisinopril for 2 weeks to let your kidneys finish healing Blood cultures from admission finalize after 5 days, but they are negative so far. There is a small risk of having to bring you back in for IV antibiotics if resistant bacteria grows from your blood culture. Follow up with [facility] for cirrhosis, which can be seen on your CT scan and labs. You reported negative Hepatitis B and C testing in the past and no history of heavy alcohol. The next most common cause is metabolic - non- alcohol related fatty liver disease, which is associated with conditions like diabetes high blood pressure and overweight. Pending Studies at Discharge: Yes Stand-Alone Forms: My [facility], Smoking Cessation Medications and DC Order Prescriptions: New cefdinir 300 mg capsule 300 mg PO BID 10 Days Qty: 20 0RF Rx Instructions: already filled Rx from urology, already has at home. Continued metformin 500 mg tablet extended release 24 hr 1,000 mg PO BID 90 Days Qty: 360 1RF (DME) FreeStyle Irma 14 Day Sensor Kit See Rx Instructions .ROUTE .MEDSUPPLY Qty: 6 3RF Rx Instructions: Change sensor every 14 days multivitamin Tablet 1 tab PO QAM cholecalciferol (vitamin D3) 125 mcg (5,000 unit) capsule 5,000 units PO QPM atenolol 25 mg tablet 25 mg PO QAM Rx Instructions: TAKE 1 TABLET BY MOUTH EVERY DAY IN THE MORNING levothyroxine 75 mcg tablet 75 mcg PO QAM Rx Instructions: TAKE 1 TABLET BY MOUTH EVERY MORNING glipizide 5 mg tablet 2.5 mg PO QAM empagliflozin 10 mg tablet 10 mg PO QPM Patient Comments: 1 hr before dinner tamsulosin [Flomax] 0.4 mg capsule 0.4 mg PO DAILY Qty: 14 0RF ondansetron 4 mg tablet,disintegrating 4 mg PO Q6H PRN (Reason: nausea and vomiting) Qty: 12 0RF oxycodone 5 mg tablet 5 mg PO Q6H PRN (Reason: pain) Qty: 10 0RF Rx Instructions: Initial therapy atorvastatin 10 mg tablet 5 mg PO QAM Rx Instructions: TAKE 1/2 TABLET BY MOUTH EVERY DAY Held lisinopril 20 mg tablet 20 mg PO QPM Hold Instructions: Resume on 06/05/23. Patient Comments: 1 hr before dinner Discontinued ciprofloxacin HCl [Cipro] 500 mg tablet 500 mg PO BID 10 Days Qty: 20 0RF Rx Instructions: ORDERED 05/18/23. Discharge Orders: Discharge Order (Routine); Ordered 05/22/23 Ordered By: Arabella Richardson/Other Patient Handouts: Managing Type 2 Diabetes Admission Data Admit Date/Time: 05/19/23 21:04 Attending Provider: Arabella Luna Admit Provider: Zhou Brito Primary Care Provider: Bryant Muro Other Providers: Zhou Brito; Javier Whelan Other Interventions: Discharge Summary Assessment (RN) Last Done: 05/22/23 10:42 Coding Level of Care Code 14391 IN/OBS DISCH 30 MIN/LESS Diagnoses Sepsis due to gram-negative UTI A41.50; N39.0 Urolithiasis N20.9 KARYN (acute kidney injury) N17.9 Pancytopenia D61.818 BPH with obstruction/lower urinary tract symptoms N40.1; N13.8 Type 2 diabetes mellitus E11.9 Hypertension I10 Cirrhosis K74.60
== END 2023-05-22 10:51 | disposition home or self-care (01) | DRG 854 ==
LOC: ED 17:12 → SUATTDRO 21:04 → 2S 21:04
DX: I10 Essential (primary) hypertension; Z87.891 Personal history of nicotine dependence; D56.3 Thalassemia minor; E03.9 Hypothyroidism, unspecified; N17.9 Acute kidney failure, unspecified; Z79.899 Other long term (current) drug therapy; Z88.2 Allergy status to sulfonamides; N13.6 Pyonephrosis; E87.20 Acidosis, unspecified; N40.1 Benign prostatic hyperplasia with lower urinary tract symptoms; R16.1 Splenomegaly, not elsewhere classified; Z88.8 Allergy status to other drugs, medicaments and biological substances; K74.60 Unspecified cirrhosis of liver; Z88.7 Allergy status to serum and vaccine; Z79.890 Hormone replacement therapy; R65.20 Severe sepsis without septic shock; E11.65 Type 2 diabetes mellitus with hyperglycemia; A41.51 Sepsis due to Escherichia coli [E. coli]; D61.818 Other pancytopenia; E86.0 Dehydration; E78.5 Hyperlipidemia, unspecified; Z79.84 Long term (current) use of oral hypoglycemic drugs